=== PATIENT | female | born 2005 | race Caucasian/White ===

== ENCOUNTER → 2024-01-29 08:01 | Outpatient (BNVA) | payer MEDICAID, SELFPAY | PROVIDERS: Family Provider Nurse Practitioner Family; PCP Family Medicine; Visit Provider Nurse Practitioner Women's Health | DX: Z34.90 Encounter for supervision of normal pregnancy, unspecified, unspecified trimester | CPT/HCPCS: 80307; 81025; 84439; 84443; 84481; 85025; 86592; 86762; 86803; 86850; 86900; 87086; 87340; 87491; 87591; 87806 ==

== ENCOUNTER → 2024-02-09 08:00 | Outpatient (BNVA) | payer MEDICAID, SELFPAY | PROVIDERS: Family Provider Nurse Practitioner Family; PCP Family Medicine; Visit Provider Obstetrics & Gynecology | DX: Z34.02 Encounter for supervision of normal first pregnancy, second trimester (principal) | CPT/HCPCS: 81000; 82950 ==

== ENCOUNTER → 2024-02-16 11:15 | Outpatient (BNVA) | payer MEDICAID, SELFPAY | PROVIDERS: Family Provider Nurse Practitioner Family; PCP Family Medicine; Visit Provider Obstetrics & Gynecology | DX: O09.32 Supervision of pregnancy with insufficient antenatal care, second trimester (principal); Z3A.21 21 weeks gestation of pregnancy | CPT/HCPCS: 76805 ==

== ENCOUNTER → 2024-03-16 12:21 | Outpatient (BNVA) | payer BC, MEDICAID, SELFPAY | PROVIDERS: Family Provider Nurse Practitioner Family; PCP Family Medicine; Visit Provider Obstetrics & Gynecology | DX: Z36.2 Encounter for other antenatal screening follow-up (principal); Z3A.26 26 weeks gestation of pregnancy | CPT/HCPCS: 76816 ==

== ENCOUNTER → 2024-04-05 08:20 | Outpatient (BNVA) | payer BC, MEDICAID, SELFPAY | PROVIDERS: Family Provider Nurse Practitioner Family; PCP Family Medicine; Visit Provider Nurse Practitioner Women's Health | DX: Z34.02 Encounter for supervision of normal first pregnancy, second trimester (principal) | CPT/HCPCS: 82950; 84315; 85025 ==

== ENCOUNTER → 2024-04-11 08:14 | Outpatient (BNVA) | payer BC, MEDICAID, SELFPAY | PROVIDERS: Family Provider Nurse Practitioner Family; PCP Family Medicine; Visit Provider Nurse Practitioner Women's Health | DX: Z34.02 Encounter for supervision of normal first pregnancy, second trimester (principal) | CPT/HCPCS: 82951; 82952 ==

== ENCOUNTER → 2024-05-17 08:31 | Outpatient (BNVA) | payer BC, MEDICAID, SELFPAY | PROVIDERS: Family Provider Nurse Practitioner Family; PCP Family Medicine; Visit Provider Obstetrics & Gynecology | DX: Z34.02 Encounter for supervision of normal first pregnancy, second trimester (principal) | CPT/HCPCS: 82950; 84315 ==

== ENCOUNTER → 2024-05-19 08:31 | Outpatient (BNVA) | payer BC, MEDICAID, SELFPAY | PROVIDERS: Family Provider Nurse Practitioner Family; PCP Family Medicine; Visit Provider Obstetrics & Gynecology | DX: Z36.4 Encounter for antenatal screening for fetal growth retardation (principal); Z3A.36 36 weeks gestation of pregnancy | CPT/HCPCS: 76816 ==

== ENCOUNTER 2024-06-01 10:00 | Inpatient (IN) | payer BC, MEDICAID, SELFPAY ==
[2024-05-31] VITALS (52 sets, daily range): BP systolic 132–183; BP diastolic 74–137; PULSE 67–103; RESP 16–18; TEMP 36.8–37.2; BMI 41.2
[2024-05-31 10:15] LABS: Basophils % 0.2 %; Eosinophils # 0.1 10^3/uL (0.0-0.8); Eosinophils % 0.8 %; Hematocrit 34.9 % (36-47); Lymphocytes % 16.5 %; Mean Corpuscular HGB Conc 32.4 g/dL (30-55); Mean Corpuscular Hemoglobin 27.2 pg (27-33); Mean Corpuscular Volume 83.9 fl (85-98); Mean Platelet Volume 12.4 fL (7.4-10.4); Monocytes # 0.8 10^3/uL (0.2-0.9); Monocytes % 6.8 %; Neutrophils % 75.1 %; Nucleated Red Blood Cells % 0 %; Platelet Count 205 10^3/cmm (157-399); Red Blood Count 4.16 10^6/uL (3.85-5.65); Red Cell Distribution Width 14.9 % (12.1-15.1); White Blood Count 11.84 10^3/uL (3.29-11.43)
[2024-05-31 10:38] LABS: Alkaline Phosphatase 164 U/L (35-105); Anion Gap 16.2 (5-19); Blood Urea Nitrogen 13 mg/dL (6-20); Calcium 8.9 mg/dL (8.5-10.5); Carbon Dioxide 18 mmol/L (22-29); Chloride 107 mmol/L (98-107); Creatinine Clr Calc Pharmacy 211.5271; Globulin 3.3 g/dL (1.3-4.6); Glomerular Filtration Rate 126.2 mL/min (90-130); Glucose 115 mg/dL (65-115); Osmolality Calculated 285 mOsm/kg (285-295); Potassium 4.2 mmol/L (3.5-5.1); Sodium 137 mmol/L (136-145); Total Bilirubin 0.2 mg/dL (0.15-1.2); Total Protein 6.3 g/dL (6.6-8.7); Uric Acid 6.4 mg/dL (2.4-5.7)
[2024-05-31 10:40] LABS: Bilirubin Urine Negative (Negative); Blood Urine Negative (Negative); Glucose Urine UA Negative (Normal); Ketones Urine Negative (Negative); Leukocyte Esterase Urine 1+ (Negative); Nitrate Urine Negative (Negative); Protein Urine 1+ (Negative); Specific Gravity, Urine 1.011 (1.005-1.030); Urine Appearance Clear (CLEAR); Urine Color Yellow (Yellow); Urobilinogen Urine 0.2 mg/dL (Negative); pH Urine 6.5 (5-7)
[2024-05-31 10:43] LABS: Add Urine Microscopic? YES; Bacteria Urine Trace /hpf; RBC Urine 0-2 /hpf (0-2)
[2024-05-31 10:50] LABS: Alanine Aminotransferase < 5 U/L (0-33); Aspartate Amino Transferase 5 U/L (0-32)
[2024-05-31 11:02] LABS: UA Slide Review UA Slide Review Perf
[2024-05-31 11:03] LABS: Add Urine Culture? No; Urine Creatinine 61 mg/dL (28-217)
[2024-05-31 11:05] LABS: UPRO/UCREAT Ratio 0.54 mg/mg CR; Urine Protein Random 33 mg/dL
[2024-05-31] MEDS: dextrose 5%-lactated ringers 1,000 ML 75 ML IV (12:00)
[2024-05-31] MEDS: magnesium sulfate premix 4 GM/100 ML PREMIX IV (12:00)
[2024-05-31] MEDS: magnesium sulfate premix 20 GM/500 ML BAG IV ×2 (12:25→21:37)
[2024-05-31] MEDS: miSOPROStol 100 mcg tablet 25 MCG VAGINAL ×3 (12:28→22:43)
[2024-05-31] MEDS: ampicillin 2,000 MG in sodium chloride 0.9% (plus) 50 ML 100 MG IV (12:45)
[2024-05-31] MEDS: ampicillin 1,000 MG in sodium chloride 0.9% (plus) 50 ML 100 MG IV ×2 (16:31→20:53)
[2024-05-31 18:12] LABS: Magnesium Level (OB Only) 4.5 mg/dL (5.0-7.5)
[2024-05-31] MEDS: lanolin oint 7 gm 1 APPLIC TOPICAL (20:37)
[2024-06-01] VITALS (62 sets, daily range): BP systolic 119–160; BP diastolic 60–105; PULSE 65–112; RESP 16–18; TEMP 36.8–37.1
[2024-06-01] MEDS: ampicillin 1,000 MG in sodium chloride 0.9% (plus) 50 ML 100 MG IV ×4 (00:48→12:52)
[2024-06-01] MEDS: dextrose 5%-lactated ringers 1,000 ML 75 ML IV ×2 (02:42→17:43)
[2024-06-01 06:28] LABS: Magnesium Level (OB Only) 6.3 mg/dL (5.0-7.5)
[2024-06-01] MEDS: miSOPROStol 100 mcg tablet 25 MCG VAGINAL (07:11)
[2024-06-01] MEDS: magnesium sulfate premix 20 GM/500 ML BAG IV ×2 (07:42→17:40)
--- NOTE | 2024-06-01 09:20 | P.PN_ITS ---
Subjective 2 Subjective: Mrs. Waggoner 19-year-old female G1, P0 with an estimated stational age at 36 weeks 3 days with preeclampsia admitted for induction. Vitals/I&O/Wt Last Vital Signs Temp 98.3 F 06/01/24 05:30 Pulse 85 06/01/24 09:17 Resp 18 06/01/24 05:30 BP 137/84 06/01/24 09:17 O2 Del Method Room Air 05/31/24 12:03 05/31/24 06/01/24 06/01/24 22:59 06:59 14:59 Intake Total 560 / 710 1100 / 1810 500 / 500 Output Total 3150 / 3750 3065 / 6815 500 / 500 Balance -2590 / -3040 -1965 / -5005 0 / 0 Weight last 48 hrs Weight 126.552 kg Physical Exam 2 Narrative: GA: Alert and oriented ?3. Lungs: Clear to auscultation bilaterally. Heart: Regular rhythm and rate. Abdomen: Gravid, full the height equals dates, nontender. BUSINESS SYSTEMS ANALYST: SVE; dilation: 2 cm, effacement: 40%, station: -4, presentation: Cephalic, membranes: Intact membrane. Extremities: no edema, no cyanosis, no calves pain. heart tracing: Basal rate: 140's bpm, Variability: moderate, Accelerations: present, Decelerations: absent, Contraction: Irregular. Urinary Catheter Management: Leroy Latex Free: Cath Placed During This Visit: yes Reason for Continuing Indwelling Catheter: Accurate Measurement of Urinary Output in Critically Ill Patients Urinary Catheter Date of Insertion: 05/31/24 Urinary Catheter Time of Insertion: 12:00 Data 06/02/24 20:28 05/31/24 10:00 A&P Assessment and plan (1) Pre-eclampsia during in third trimester, antepartum: Mrs. Edilson Pablo-year-old female with an estimated stational age at 36 weeks 3 days admitted with preeclampsia for induction. Misoprostol for cervical ripening given to follow-up with oxytocin augmentation. scalp stimulation reassuring. Plan Continue monitoring Cervical ripening Induction Attestations 2 Medical Necessity Statement*: My professional opinion per admitting diagnosis Coding Level of Care Code Acute Code for Chg Fwd Diagnoses Pre-eclampsia during in third trimester, antepartum O14.93
[2024-06-01] MEDS: oxytocin 30 UNIT/500 ML BAG IV (12:45)
[2024-06-01 13:15] LABS: Magnesium Level (OB Only) 6.3 mg/dL (5.0-7.5)
[2024-06-01 18:19] LABS: Magnesium Level (OB Only) 6.1 mg/dL (5.0-7.5)
[2024-06-01] MEDS: ondansetron 2 mg/ML SDV 2 mL 4 MG IVP (19:36)
[2024-06-02] VITALS (41 sets, daily range): BP systolic 114–183; BP diastolic 56–99; PULSE 69–110; RESP 15; TEMP 36.2–36.7; O2SAT 97–100
[2024-06-02 00:49] LABS: Magnesium Level (OB Only) 6.3 mg/dL (5.0-7.5)
[2024-06-02] MEDS: magnesium sulfate premix 20 GM/500 ML BAG IV ×2 (03:49→14:57)
[2024-06-02] MEDS: lactated ringers 1,000 ML 999 ML IV (06:34)
--- NOTE | 2024-06-02 06:53 | P.ANESASSM_ITS ---
Pre-Anesthetic Assessment Height/Weight: Height 1.75 m Weight 126.552 kg Temp Pulse Resp BP O2 Del Method 97.2 F L 90 17 183/91 Room Air 06/02/24 02:22 06/02/24 06:46 06/01/24 16:30 06/02/24 06:46 05/31/24 12:03 Preop Diagnosis: Failure to progress, Pre-E Familial anesthetic complications: none Was Beta Tremaine taken within 24 hours: N/A Was Clonidine taken within 24 hours: N/A Last intake: Intake Last Liquid Date 06/02/24 Last Liquid Time 05:45 Last Solid Date 05/31/24 Last Solid Time 07:30 Social No alcohol and No tobacco Exam alert, oriented x 3, clear to auscultation bilaterally and regular rate & rhythm Airway Submandibular: within normal limits Cervical ROM: within normal limits Mallampati: Class II Dentition: full Pulmonary None reported CV/HEM Hypertension (183/91 pre-eclampsia mg gtt) partial third kidney removed at 1 years old. function otherwise normal. Hepatic None reported GI Gastroesophageal Reflux Disease Metabolic Morbid Obesity [facility] None reported Neuropsych None reported Anesthetic Plan ASA status: 3 Anesthesia: Eval. for regional block Medications/Allergies Home Medications Medication Instructions Recorded Confirmed Last Taken Type PNV 153-FA 400 mcg-om3 35 mg-dha 1 tab PO DAILY 05/03/24 05/31/24 Unknown History 25 mg-epa 5 mg-fish oil chew tablet ( Gummies) Allergies Allergy/AdvReac Type Severity Reaction Status Date / Time No Known Allergies Allergy Verified 05/31/24 20:41 Current Medications Generic Name Dose Route Start Last Admin Trade Name Kingsley PRN Reason Stop Dose Admin Magnesium Sulfate 20 gm in 500 mls @ 50 mls/hr 05/31/24 11:15 06/02/24 03:49 Magnesium Sulfate Premix IV 50 mls/hr .Q10H LUCILLE Administration Ampicillin Sodium 1,000 mg/ 50 mls @ 100 mls/hr 05/31/24 16:00 06/02/24 04:06 Sodium Chloride IV Not Given Q4H LUCILLE Protocol Dextrose/Lactated Ringer's 1,000 mls @ 125 mls/hr 06/01/24 01:00 06/01/24 17:43 Dextrose 5%-Lactated Ringers IV 75 mls/hr .Q8H LUCILLE Administration Oxytocin 30 unit in 500 mls @ 1 mls/hr 06/01/24 12:45 06/02/24 03:30 Pitocin IV 20 milliunit/min .Q24H LUCILLE 20 mls/hr Titration Protocol 1 MILLIUNIT/MIN Lactated Ringer's 1,000 mls @ 999 mls/hr 06/02/24 05:56 06/02/24 06:34 Lactated Ringers IV 06/02/24 06:56 999 mls/hr .Q1H1M ONE Administration Lanolin 1 applic 05/31/24 11:14 05/31/24 20:37 Lanolin Oint 7 Gm TOPICAL 1 applic PRN PRN Administration DRYNESS Ondansetron HCl 4 mg 05/31/24 11:14 06/01/24 19:36 Ondansetron 2 Mg/Ml Sdv 2 Ml IVP 4 mg Q4H PRN Administration NAUSEA AND VOMITING PFSH Anesthesia Family History Mother Heart disease Grandfather Diabetes Grandfather No problems noted. Grandmother Diabetes Denies family history of Colon cancer Ovarian cancer Prostate cancer Breast cancer Hypertension Uterine cancer Thyroid disease Stroke Social History Smoking and tobacco/nicotine status: never used tobacco/nicotine Female Reproductive History : 1 Data Anesthesia 05/31/24 10:00 05/31/24 10:00 Short CBC 05/31/24 Range/Units 10:00 WBC 11.84 H (3.29-11.43) 10^3/uL Hgb 11.30 (11.27-16.99) g/dL Hct 34.9 L (36-47) % MCV 83.9 L (85-98) fl Plt Count 205 (157-399) 10^3/cmm Neut % (Auto) 75.1 % Neut # (Auto) 8.90 H (1.8-7.7) 10^3/uL BMP 05/31/24 10:00 Sodium 137 Potassium 4.2 Chloride 107 Carbon Dioxide 18 L BUN 13 Creatinine 0.6 Glucose 115 Calcium 8.9 Liver Function 05/31/24 Range/Units 10:00 Total Bilirubin 0.2 (0.15-1.2) mg/dL AST 5 (0-32) U/L ALT < 5 (0-33) U/L Alkaline Phosphatase 164 H (35-105) U/L Albumin 3.0 L (3.5-5.2) g/dL Urine 05/31/24 05/31/24 Range/Units 09:54 10:00 Urine Color Cancelled Yellow Urine Appearance Cancelled Clear Urine pH Cancelled 6.5 Ur Specific [place] Cancelled 1.011 Urine Protein Cancelled 1+ A Urine Glucose (UA) Cancelled Negative Urine Ketones Cancelled Negative Urine Nitrate Cancelled Negative Urine Bilirubin Cancelled Negative Ur Leukocyte Esterase Cancelled 1+ A Urine RBC Cancelled 0-2 Urine WBC Cancelled 11-20 H Ur Renal Epithelial Cell Cancelled Blood Bank 05/31/24 10:00 Blood Type B Positive Rho(D) Type Rh positive Antibody Screen Negative Cardiac Studies: 2 No Data to Display
[2024-06-02] MEDS: metoclopramide 5 mg/mL SDV 2 mL 10 MG IV (06:55)
[2024-06-02] MEDS: citric acid-sodium citrate 30 mL UDC PO (06:55)
[2024-06-02] MEDS: famotidine 20 mg/2 mL INJ IVP (06:57)
[2024-06-02] MEDS: BUPIVACAINE LIPOSOME/PF 266 MG, BUPivacaine 0.25% 30 ML in sodium chloride 0.9% 50 ML 30 MG INFILTRATI (07:33)
--- NOTE | 2024-06-02 08:42 | PM.OP ---
Operative Report Date of procedure: June 02, 2024 Pre-op diagnosis: at 36 weeks Preeclampsia Failure to progress Post-op diagnosis: same Procedure done: Primary low-transverse delivery Surgeon: Austin No MD Estimated blood loss (mL): 400 IV fluids (mL): 1,200 Urine output (mL): 50 Complications: None Procedure: After assuring informed consent, the patient was taken to the operating room and anesthesia was initiated. She was placed in the dorsal supine position with a left lateral tilt. The abdomen was prepped and draped in the usual sterile manner. A time-out procedure was performed. Preop antibiotics was administered. A Pfannenstiel skin incision was made with the scalpel and carried through to the underlying layer of fascia with the Bovie. The fascia was nicked in the midline and the incision extended laterally with the Kong scissors. The superior aspect of the fascial incision was then grasped with Darlin clamps and elevated and the underlying rectus muscle dissected off bluntly. Attention was then turned to the inferior aspect of the incision which, in similar fashion, was grasped and tented up with Darlin clamps and the rectus muscle dissected bluntly. The rectus muscles were then in the midline and the peritoneum identified, tented up and entered sharply with Metzenbaum scissors. The peritoneal incision was then extended superiorly and inferiorly with good visualization of the bladder. The Dennis O retractor was then inserted and the vesicouterine peritoneum identified, grasped with pickups and entered sharply with Metzenbaum scissors. This incision was then extended laterally and the bladder flap created digitally. The uterus incised in a low transverse fashion with the scalpel. The uterine incision was then extended with the bandage scissors. The was then delivered in the cephalic presentation atraumatically vacuum assisted. The nose and the mouth were suctioned with bulb and the cord clamped and cut. The cord was normal and had three vessels. Amniotic fluid was clear. The placenta was then removed manually and the uterus exteriorized and cleared of all clots and debris. The uterine incision was repaired with 0 Vicryl in a running-locked fashion. A second layer of the same suture was used to obtain excellent hemostasis. The gutters were cleared of all clots. The uterus was then returned to the abdomen. The rectus muscles were approximated with 3-0 chromic gut. The fascia was reapproximated with 0 Vicryl in an interrupted running fashion. Subcutaneous adipose tissue was reapproximated with 2-0 Vicryl running fashion. Then the subcutaneous tissue was infiltrated with Exparel for pain management. The skin was closed with Insorb?s subcuticular absorbable negro. The patient tolerated the procedure well. The sponge, lap and needle counts were correct times three.
[2024-06-02] MEDS: diphenhydrAMINE 50 mg/mL SDV 1mL 25 MG IVP (11:07)
[2024-06-02] MEDS: dextrose 5%-lactated ringers 1,000 ML 75 ML IV (11:10)
[2024-06-02] MEDS: ketorolac 30 mg/mL INJ IVP ×2 (15:32→21:44)
[2024-06-02] MEDS: lanolin oint 7 gm 1 APPLIC TOPICAL (15:34)
[2024-06-02 21:33] LABS: Hematocrit 29.4 % (36-47); Mean Corpuscular HGB Conc 32.7 g/dL (30-55); Mean Corpuscular Hemoglobin 26.7 pg (27-33); Mean Corpuscular Volume 81.9 fl (85-98); Mean Platelet Volume 13.3 fL (7.4-10.4); Platelet Count 217 10^3/cmm (157-399); Red Blood Count 3.59 10^6/uL (3.85-5.65); Red Cell Distribution Width 14.8 % (12.1-15.1); White Blood Count 11.74 10^3/uL (3.29-11.43)
[2024-06-02] MEDS: docusate sodium 100 mg Capsule PO (21:45)
[2024-06-02 21:58] LABS: Magnesium Level (OB Only) 6.4 mg/dL (5.0-7.5)
[2024-06-03] VITALS (8 sets, daily range): BP systolic 130–159; BP diastolic 72–99; PULSE 75–98; RESP 16; TEMP 36.9
[2024-06-03] MEDS: dextrose 5%-lactated ringers 1,000 ML 75 ML IV (00:39)
[2024-06-03] MEDS: magnesium sulfate premix 20 GM/500 ML BAG IV (00:40)
[2024-06-03] MEDS: ketorolac 30 mg/mL INJ IVP (03:16)
[2024-06-03] MEDS: PRENATAL VIT NO.130/IRON/FOLIC 1 EACH TABLET PO (09:16)
[2024-06-03] MEDS: docusate sodium 100 mg Capsule PO ×2 (09:16→20:45)
--- NOTE | 2024-06-03 12:50 | P.PN_ITS ---
Subjective 2 Subjective: Mrs. Waggoner 19-year-old female G1, P1 status post primary low-transverse delivery postoperative day 1. Referred pain under control. Vitals/I&O/Wt Last Vital Signs Temp 98.4 F 06/04/24 04:07 Pulse 91 06/04/24 04:07 Resp 14 06/04/24 04:07 BP 132/88 06/04/24 04:07 Pulse Ox 96 06/04/24 04:07 O2 Del Method Room Air 06/04/24 04:07 06/03/24 06/04/24 06/04/24 22:59 06:59 14:59 Output Total 1000 / 2210 Balance -1000 / -1839.167 Physical Exam 2 Narrative: GA; alert and oriented x 3 HEENT: normal Breasts: engorged Nipples - skin intact Lungs; clear to auscultation Heart: regular rhythm, no murmurs. Abd: Appropriately tender. BS+. Uterine fundus below umbilicus. No Fundal Tenderness. Minimal tenderness, incision clean and dry, no redness, pain or edema Perineum: normal lochia. Extremities: no edema, no cyanosis, no tenderness. Urinary Catheter Management: Leroy Latex Free: Cath Placed During This Visit: yes, but has since been removed by the nurse Reason for Continuing Indwelling Catheter: Decision to DC Catheter Urinary Catheter Date of Insertion: 05/31/24 Urinary Catheter Time of Insertion: 12:00 Date Urinary Catheter Removed: 06/03/24 Time Urinary Catheter Discontinued: 09:00 Data 06/02/24 20:28 05/31/24 10:00 A&P Assessment and plan (1) delivery delivered: Mrs. Edilson Pablo-year-old female G1, P1 status post primary low-transverse delivery due to failure to progress. She is afebrile hemodynamically stable postoperative day 1. Tolerating diet well. Ambulating without difficulty. (2) Pre-eclampsia during in third trimester, antepartum: Plan Continue postop observation Attestations 2 Medical Necessity Statement*: In my professional opinion per admitting diagnosis Coding Level of Care Code Acute Code for Chg Fwd Diagnoses delivery delivered O82 Pre-eclampsia during in third trimester, antepartum O14.93
[2024-06-03] MEDS: HYDROcodone-acetaminophen 5-325 mg Tablet PO (13:22)
[2024-06-03] MEDS: ibuprofen 800 mg tablet PO ×2 (16:09→20:45)
[2024-06-04 04:07] VITALS: BP 132/88; PULSE 91; RESP 14; TEMP 36.9; O2SAT 96
[2024-06-04] MEDS: HYDROcodone-acetaminophen 5-325 mg Tablet PO (05:41)
--- NOTE | 2024-06-04 08:54 | PM.OBGYDC ---
Discharge Providers HEAD HOUSEKEEPER Date of Admission: 05/31/24 11: Date of Discharge: 06/04/24 Attending Provider at Admission: Austin No MD Attending Provider at Discharge: Austin No MD Primary HEAD HOUSEKEEPER: Dr. Rivero Primary Care Provider: Toni Peralta DO Diagnoses at Discharge Discharge Diagnosis (1) delivery delivered: Status: Acute (2) Pre-eclampsia during in third trimester, antepartum: Status: Acute Reason for Visit Reason for Visit: NST Elevated BP Hospital Course Hospital Course Mrs. Waggoner 19-year-old female with an estimated stational age at 36 weeks, complicated by preeclampsia. Induction was started she only progress to 2 cm dilation after 48 hours of induction. Primary low-transverse delivery was performed for failure to progress. delivery was performed without complication. She is afebrile hemodynamically stable postoperative day 2. Tolerating diet well. Ambulating without difficulty. She was counseled regarding pelvic rest for 6 weeks (no sex, no tampons, no vaginal douches). Return to the emergency room if any fever, increased bleeding or pain. Information Peripartum Data: Delivery Method: Physical Exam Narrative: GA; alert and oriented x 3 HEENT: normal Breasts: engorged Nipples - skin intact Lungs; clear to auscultation Heart: regular rhythm, no murmurs. Abd: Appropriately tender. BS+. Uterine fundus below umbilicus. No Fundal Tenderness. Minimal tenderness, incision clean and dry, no redness, pain or edema Perineum: normal lochia. Extremities: no edema, no cyanosis, no tenderness. Urinary Catheter Management: Leroy Latex Free: Cath Placed During This Visit: yes, but has since been removed by the nurse Reason for Continuing Indwelling Catheter: Decision to DC Catheter Urinary Catheter Date of Insertion: 05/31/24 Urinary Catheter Time of Insertion: 12:00 Date Urinary Catheter Removed: 06/03/24 Time Urinary Catheter Discontinued: 09:00 History History History 1 Term 0 Miscarriages/Ectopic Living Children Discharge Data Studies Completed and Pending Laboratory Results WBC 11.74 10^3/uL (3.29-11.43) H 06/02/24 20:28 RBC 3.59 10^6/uL (3.85-5.65) L 06/02/24 20:28 Hgb 9.60 g/dL (11.27-16.99) L 06/02/24 20: Hct 29.4 % (36-47) L 06/02/24 20: MCV 81.9 fl (85-98) L 06/02/24 20: MCH 26.7 pg (27-33) L 06/02/24 20: MCHC 32.7 g/dL (30-55) 06/02/24 20: RDW 14.8 % (12.1-15.1) 06/02/24 20: Plt Count 217 10^3/cmm (157-399) 06/02/24 20: MPV 13.3 fL (7.4-10.4) H 06/02/24 20: Neut % (Auto) 75.1 % 05/31/24 10:00 Lymph % (Auto) 16.5 % 05/31/24 10:00 [place] % (Auto) 6.8 % 05/31/24 10:00 Eos % (Auto) 0.8 % 05/31/24 10:00 Baso % (Auto) 0.2 % 05/31/24 10:00 Neut # (Auto) 8.90 10^3/uL (1.8-7.7) H 05/31/24 10:00 Lymph # (Auto) 2.0 10^3/uL (0.8-4.8) 05/31/24 10:00 [place] # (Auto) 0.8 10^3/uL (0.2-0.9) 05/31/24 10:00 Eos # (Auto) 0.1 10^3/uL (0.0-0.8) 05/31/24 10:00 Baso # (Auto) 0.0 10^3/uL (0.0-0.1) 05/31/24 10:00 Nucleated RBC % (auto) 0 % 05/31/24 10:00 Nucleated RBCs # 0.0 /100WBC 05/31/24 10:00 Sodium 137 mmol/L (136-145) 05/31/24 10:00 Potassium 4.2 mmol/L (3.5-5.1) 05/31/24 10:00 Chloride 107 mmol/L (98-107) 05/31/24 10:00 Carbon Dioxide 18 mmol/L (22-29) L 05/31/24 10:00 Anion Gap 16.2 (5-19) 05/31/24 10:00 BUN 13 mg/dL (6-20) 05/31/24 10:00 Creatinine 0.6 mg/dL (0.5-0.9) 05/31/24 10:00 GFR Calculation 126.2 mL/min (90-130) 05/31/24 10:00 Glucose 115 mg/dL (65-115) 05/31/24 10:00 Calculated Osmolality 285 mOsm/kg (285-295) 05/31/24 10:00 Uric Acid 6.4 mg/dL (2.4-5.7) H 05/31/24 10:00 Calcium 8.9 mg/dL (8.5-10.5) 05/31/24 10:00 Magnesium 6.4 mg/dL (5.0-7.5) 06/02/24 20:28 Total Bilirubin 0.2 mg/dL (0.15-1.2) 05/31/24 10:00 AST 5 U/L (0-32) 05/31/24 10:00 ALT < 5 U/L (0-33) 05/31/24 10:00 Alkaline Phosphatase 164 U/L (35-105) H 05/31/24 10:00 Total Protein 6.3 g/dL (6.6-8.7) L 05/31/24 10:00 Albumin 3.0 g/dL (3.5-5.2) L 05/31/24 10:00 Globulin 3.3 g/dL (1.3-4.6) 05/31/24 10:00 Urine Color Yellow (Yellow) 05/31/24 10:00 Urine Appearance Clear (CLEAR) 05/31/24 10:00 Urine pH 6.5 (5-7) 05/31/24 10:00 Ur Specific [place] 1.011 (1.005-1.030) 05/31/24 10:00 Urine Protein 1+ (Negative) A 05/31/24 10:00 Urine Glucose (UA) Negative (Normal) 05/31/24 10:00 Urine Ketones Negative (Negative) 05/31/24 10:00 Urine Blood Negative (Negative) 05/31/24 10:00 Urine Nitrate Negative (Negative) 05/31/24 10:00 Urine Bilirubin Negative (Negative) 05/31/24 10:00 Prot Sulfosalicylic Acd Cancelled 05/31/24 09:54 Urine Urobilinogen 0.2 mg/dL (Negative) 05/31/24 10:00 Ur Leukocyte Esterase 1+ (Negative) A 05/31/24 10:00 Urine RBC 0-2 /hpf (0-2) 05/31/24 10:00 Urine WBC 11-20 /hpf (0-5) H 05/31/24 10:00 Ur Squamous Epith Cells 6-10 /hpf (0-5) 05/31/24 10:00 Ur Transition Epith Cell Cancelled 05/31/24 09:54 Ur Renal Epithelial Cell Cancelled 05/31/24 09:54 Calcium Oxalate Crystal Cancelled 05/31/24 09:54 Uric Acid Crystals Cancelled 05/31/24 09:54 Triple Phos Crystals Cancelled 05/31/24 09:54 Other Crystals Cancelled 05/31/24 09:54 Amorphous Sediment Not Reportable 05/31/24 10:00 Urine Bacteria Trace /hpf (NONE) 05/31/24 10:00 Hyaline Casts 0.40 /lpf 05/31/24 10:00 Fine Granular Casts Cancelled 05/31/24 09:54 Coarse Granular Casts Cancelled 05/31/24 09:54 RBC Casts Cancelled 05/31/24 09:54 Other Casts Cancelled 05/31/24 09:54 Urine Mucus Cancelled 05/31/24 09:54 Urine Trichomonas Cancelled 05/31/24 09:54 Urine Yeast Cancelled 05/31/24 09:54 Urine Sperm Cancelled 05/31/24 09:54 Ur Oval Fat Bodies Cancelled 05/31/24 09:54 U Random Total Protein 33 mg/dL 05/31/24 10:00 Urine Creatinine 61 mg/dL (28-217) 05/31/24 10:00 Protein/Creatinin Ratio 0.54 mg/mg CR 05/31/24 10:00 Blood Type B Positive 05/31/24 10:00 Rho(D) Type Rh positive 05/31/24 10:00 Antibody Screen Negative 05/31/24 10:00 Vitals Last Vital Signs Temp 98.4 F 06/04/24 04:07 Pulse 91 06/04/24 04:07 Resp 14 06/04/24 04:07 BP 132/88 06/04/24 04:07 Pulse Ox 96 06/04/24 04:07 O2 Del Method Room Air 06/04/24 04:07 Results Labs OB ([facility]): Obstetrics US 05/19/24 Blood Type B Positive 05/31/24 Antibody Screen Negative 05/31/24 Hct 29.4 % (36-47) L 06/02/24 Hgb 9.60 g/dL (11.27-16.99) L 06/02/24 Rho(D) Type Rh positive 05/31/24 Plt Count 217 10^3/cmm (157-399) 06/02/24 Hep Bs Antigen Non-reactive (Nonreactive) 01/29/24 Hepatitis C Antibody Non-reactive (Nonreactive) 01/29/24 Rubella IgG Antibody 36.6 IU/mL (0.0-10.0) H 01/29/24 RPR Nonreactive (Nonreactive) 01/29/24 HIV 1&2 Ab & HIV 1 Ag Non-reactive (Non-Reactiv) 01/29/24 TSH 1.64 uIU/mL (0.27-4.20) 01/29/24 Free T4 0.82 ng/dL (0.82-1.77) 01/29/24 C.trachomatis RNA (TMA) Not detected (NOT DETECTED) 01/29/24 N.gonorrhoeae RNA (TMA) Not detected (NOT DETECTED) 01/29/24 T. vaginalis Amp RNA Not detected (NOT DETECTED) 01/29/24 Chlamydia/GC Comment See note 01/29/24 Cystic Fibrosis Screen Negative 01/29/24 Glucose 1 Hr 50 gm 97 mg/dL (85-140) 05/17/24 Gest Glucose Tolerance mg/dL 04/11/24 Uric Acid 6.4 mg/dL (2.4-5.7) H 05/31/24 HCG, Qual Positive (Negative) H 01/29/24 Urine Opiates Screen Negative ng/mL (Negative) 01/29/24 Ur Barbiturates Screen Negative ng/mL (Negative) 01/29/24 Ur Phencyclidine Scrn Negative ng/mL (Negative) 01/29/24 Ur Amphetamines Screen Negative ng/mL (Negative) 01/29/24 U Benzodiazepines Scrn Negative ng/mL (Negative) 01/29/24 Urine Cocaine Screen Negative ng/mL (Negative) 01/29/24 U Marijuana (THC) Screen Negative ng/mL (Negative) 01/29/24 Micro Urine Specimen 01/29/24 Discharge Plan Discharge Patient Disposition: Home Condition: Stable Prescriptions: New ibuprofen 800 mg tablet 800 mg PO TID PRN (Reason: pain) Qty: 60 0RF docusate sodium [Colace] 100 mg capsule 100 mg PO BID Qty: 60 0RF acetaminophen 325 mg capsule 325 mg PO Q4H PRN (Reason: fever or pain) Qty: 60 0RF hydrocodone-acetaminophen 5-325 mg tablet 1 tab PO Q4H PRN (Reason: pain) Qty: 30 0RF ferrous sulfate [Iron (ferrous sulfate)] 325 mg (65 mg iron) tablet 325 mg PO BID Qty: 60 0RF Continued Gummies 400 mcg-35 mg- 25 mg-5 mg tablet,chewable 1 tab PO DAILY Discharge Orders: Discharge Order (Routine); Ordered 06/04/24 Ordered By: Austin No Referrals: Austin No MD [Physician] - 06/14/24 9:45 am ( You have a 2 [address] follow up with Dr No on 06/14/24 at 9:45am You have a 6 week follow up with Dr No on 07/07/24 at 10:45am ) Discharge Diet: Usual diet Discharge Activity: Limit activity as instructed Patient Instructions: Depression (DC), Bleeding (DC), Preeclampsia and Eclampsia After Delivery (GEN), Hemorrhage (DC), OB [facility], OB Discharge Report, OB Anesthesia Instructions, OB Food/Drug Interaction Guide, Opioid Safety, OB Home Care, OB Proud Parent Packet Activity Restrictions/Additional Instructions: 1. Please call [facility] on next working day to make your post-operative appointment in 2 weeks. 2. Please stay home until you come back to the clinic on first post-hospatilization check up. 3. Please follow instructions on your medications CAREFULLY. 4. If you have abdominal incision, do not cover it unless dressing is necessary because of drainage. OK to shower, but avoid bath. Leave steri-strips until they fall off. If they are still on one week after surgery, you may remove them. 5. If you had vaginal surgery or vaginal repair, Dr. No may instruct you to take SITZ bath. 6. Yellow, blood tinged odorous vaginal discharge is usually normal after hysterectomy or vaginal surgeries. 7. No SEXUAL INTERCOURSE, tampons, or douches until you are completely released from the post-operative care. 8. Avoid constipation by eating right and maybe using some Metamucil or Milk of Magnesia. 9. All prescription refills are given during the working hours. Please do no wait till it runs out. Call the clinic at [phone] before your medication runs out. The clinic will get in touch with your doctor to prescribe medications if necessary. 10. Please remain within 40 mile radius from our hospital because emergencies do happen now and then during the post-operative period. 11. If you have stairs at home, take one step at a time slowly and minimize the number of trips. It helps to stay in one floor for the next few days. No lifting except what you can lift by one hand until you are released from the post-operative care. 12. Driving is discouraged until you are well healed. It may be 3-4 weeks before you feel strong enough to drive. You should be able to turn and look through the rear window without pain and you should be able to push the brake pedal very hard without pain before you drive. No fast rules, but SAFETY should be your primary concern. DO NOT drive if you are on sedating medications such as narcotics. 13. Call the clinic (during working hours) to make urgent appointment or go to the Emergency room, if any of the following occurs: i. Vaginal bleeding becomes heavy, more than a period. ii. Incision becomes red and sore, or drains pus. iii. Your TEMPERATURE is over 100.4F or you have chill. iv. IV site becomes red and swollen (a little ``knot?? is usually OK) v. Persistent nausea and vomiting vi. Persistent constipation or diarrhea vii. Rash or allergic reaction to medications. Discharge Attestations HEAD HOUSEKEEPER Time Spent in Discharge Care*: greater than 30 min Coding Level of Care Code Acute Code for Chg Fwd Diagnoses delivery delivered O82 Pre-eclampsia during in third trimester, antepartum O14.93
[2024-06-04 08:58] VITALS: BP 127/82; PULSE 83
[2024-06-04 09:00] VITALS: BP 147/82; PULSE 96; RESP 16; TEMP 35.9; O2SAT 98
[2024-06-04] MEDS: ibuprofen 800 mg tablet PO (09:01)
[2024-06-04] MEDS: PRENATAL VIT NO.130/IRON/FOLIC 1 EACH TABLET PO (09:02)
[2024-06-04] MEDS: docusate sodium 100 mg Capsule PO (09:02)
[2024-06-04 10:14] VITALS: BP 127/82; PULSE 83; RESP 16; TEMP 36.6; O2SAT 98
== END 2024-06-04 10:35 | disposition home or self-care (01) | DRG 788 ==
PROVIDERS: Admitting Provider Obstetrics & Gynecology; Family Provider Nurse Practitioner Family; PCP Family Medicine; Visit Provider Obstetrics & Gynecology
PROC: (CPT 59514; principal; 2024-06-02 07:00)
DX: O14.94 Unspecified pre-eclampsia, complicating childbirth (principal); O61.0 Failed medical induction of labor; O62.0 Primary inadequate contractions; Z3A.38 38 weeks gestation of pregnancy; Z37.0 Single live birth
CPT/HCPCS: 36415; 51702; 59025; 59409; 80053; 81001; 82570; 83735; 84156; 84315; 84550; 85025; 85027; 86850; 86900; 87081; 96376; 99211; C9290; J0290; J1200; J1885; J2274; J2405; J2590; J2765; J3010; J3475; J3490; J7030; J7120; J7121

== ENCOUNTER → 2024-08-04 15:51 | Outpatient (BNVA) | payer BC, MEDICAID, SELFPAY | PROVIDERS: Family Provider Nurse Practitioner Family; PCP Family Medicine; Visit Provider Obstetrics & Gynecology | DX: Z01.419 Encounter for gynecological examination (general) (routine) without abnormal findings (principal) | CPT/HCPCS: 87624 ==

== ENCOUNTER 2024-10-04 06:22 | Emergency (ER) | payer MEDICAID, SELFPAY ==
--- NOTE | 2024-10-04 06:33 | ED_ITS ---
HPI - Ear Problem 2 General: Chief complaint: Neck Pain/Injury Stated complaint: left ear pain Time Seen by Provider: 10/04/24 06:29 History of Present Illness: 19-year-old female presents emergency ro om the left ear pain and left-sided neck pain. She refers pain to the sternocleidomastoid muscle on the left side of her neck. She states she was fine yesterday when she woke up but this morning is severe pain is worse when she moves it is triggers specifically to the lateral portion of the left neck and it patient indicates directly overlying the sternocleidomastoid muscle. On arrival she initially has a low-grade fever. She is also complaining of some ear pain no other deficits no drainage no shortness of breath or cough. Associated symptoms: Reports ear or mastoid pain and neck pain; Denies fever(s) Related Data Home Medications ?Medication ?Instructions ?Recorded ?Confirmed PNV 153-FA 400 mcg-om3 35 mg-dha 1 tab PO DAILY 10/04/24 25 mg-epa 5 mg-fish oil chew tablet ( Gummies) Previous Rx's ?Medication ?Instructions ?Recorded docusate sodium 100 mg capsule 100 mg PO BID Constipat ion #60 caps 06/04/24 (Colace) ferrous sulfate 325 mg (65 mg 325 mg PO BID Anemia #60 tabs 06/04/24 iron) tablet (Iron (ferrous sulfate)) diclofenac sodium 75 mg 75 mg PO Q12H PRN pain #20 t abs 10/04/24 tablet,delayed release methylprednisolone 4 mg tablets in See Rx Instructions PO .COMPLEX 10/04/24 a dose pack (Medrol (Yahir)) #21 ea tizanidine 4 mg tablet 4 mg PO Q6H PRN muscle spast icity 10/04/24 #20 tabs Allergies Allergy/AdvReac Type Severity Reaction Status Date / Time No Known Allergies Allergy Verified 10/04/24 06:41 Review of Systems 2 Const: Denies: fever(s) or chills ENMT: Reports: ear or mastoid pain Card: Denies: chest pain Resp: Denies: dyspnea GI: Denies: abdominal pain : Denies: dysuria, urinary frequency or urinary urgency Musc: Reports: neck pain; Denies: back pain Skin/Breast: Denies: rash PFSH ED 2 PFSH: Family History Mother Heart disease Grandfather Diabetes Grandfather No problems noted. Grandmother Diabetes Denies family history of Colon cancer Ovarian cancer Prostate cancer Breast cancer Hypertension Uterine cancer Thyroid disease Stroke Social History Smoking and tobacco/nicotine status: never used tobacco/nicotine Physical Exam 2 Const: COMMON NORMALS: no acute distress GENERAL APPEARANCE: cooperative and comfortable ORIENTATION/CONSCIOUSNESS: Yes awake, Yes oriented to person, Yes oriented to place and Yes oriented to time HENMT: COMMON NORMALS: normocephalic, atraumatic, hearing grossly normal bilaterally, external ears normal, EAC's normal, TM's normal bilaterally and Normal nasal mucous membranes and turbinates present HEAD & SCALP: n ormocephalic and atraumatic NOSE: Normal nasal mucous membranes and turbinates present EXTERNAL EAR: Yes external ears normal EXTERNAL AUDITORY CANAL: EAC's normal TYMPANIC MEMBRANE: TM's normal bilaterally M OUTH: Normal oral and palatal mucosa present, lip normal and tongue normal T EETH & GINGIVA: no abnormal tooth and associated gingiva THROAT: posterior oropharynx normal and tonsils normal (Mild chronic hypertrophy but no exudate no erythema) Neck/C-Spine: COMMON NORMALS: no lymphadenopathy, supple and no JVD OTHER: Pain with range of motion of the neck particularly with flexion and extension no palpable lymphadenopathy no nuchal rigidity. No radicular arm symptoms Lymph: LYMPHATIC: no lymphadenopathy noted and no lymphedema noted Resp: COMMON NORMALS: normal respiratory effort, No retractions, No use of accessory muscles and clear to auscultation bilaterally AUSCULTATION: clear to auscultation bilaterally Cardio: COMMON NORMALS: no JVD, regular rate, regular rhythm and No murmurs present (Cardio) RATE: regular rate RHYTHM: regular rhythm Neuro: SENSORIUM/ORIENTATION: Yes oriented to person, Yes oriented to place and Yes oriented to time Skin: COMMON NORMALS: no rashes or lesions noted GENERAL SKIN EXAM: no rashes or lesions noted Course 2 Vital Signs: Vital signs: Vital Signs Temperature 98.3 F 10/04/24 08:02 Pulse Rate 87 10/04/24 09:12 Respiratory Rate 20 H 10/04/24 08:59 Blood Pressure 139/84 10/04/24 09:12 Pulse Oximetry 95 10/04/24 09:12 Oxygen Delivery Me thod Room Air 10/04/24 06:37 MDM - Ear Medical Decision Making TMs external auditory canals oropharynx clear all normal. She has reproducible pain with range of motion. She has no radicular neck symptoms. She has no meningeal like symptoms. We monitored her for a time fever resolved she does have a very light elevation of her white count and a small left shift but not very impressive at this time her sed rate is only 29. With anti-inflammatories and steroids that she has significant improvement of the neck pain. Unable to work her through a full range of motion in her neck at this time. Kernig's and (are negative. I do not believe she has a significant cervical cord impingement. There is no evidence of upper extremity radiculopathy. The rest of her exam was unremarkable. Will discharge patient home with steroid taper muscle relaxers as has worsening symptoms return to the emergency room. Medical Records I reviewed the patient's medical records. Lab Data I reviewed the patient's lab results. 10/04/24 07:12 10/04/24 07:12 Laboratory Results WBC 12.48 10^3/uL (3.29-11.43) H 10/04/24 07:12 RBC 4.84 10^6/uL (3.85-5.65) 10/04/24 07:12 Hgb 12.50 g/dL (11.27-16.99) 10/04/24 07:12 Hct 39.4 % (36-47) 10/04/24 07:12 MCV 81.4 fl (85-98) L 10/04/24 07:12 MCH 25.8 pg (27-33) L 10/04/24 07:12 MCHC 31.7 g/dL (30-55) 10/04/24 07:12 RDW 14.3 % (12.1-15.1) 10/04/24 07:12 Plt Count 312 10^3/cmm (157-399) 10/04/24 07:12 MPV 11.3 fL (7.4-10.4) H 10/04/24 07:12 Neut % (Auto) 67.0 % 10/04/24 07:12 Lymph % (Auto) 23.2 % 10/04/24 07:12 [place] % (Auto) 8.4 % 10/04/24 07:12 Eos % (Auto) 0.7 % 10/04/24 07:12 Baso % (Auto) 0.3 % 10/04/24 07:12 Neut # (Auto) 8.36 10^3/uL (1.8-7.7) H 10/04/24 07:12 Lymph # (Auto) 2.9 10^3/uL (0.8-4.8) 10/04/24 07:12 [place] # (Auto) 1.1 10^3/uL (0.2-0.9) H 10/04/24 07:12 Eos # (Auto) 0.1 10^3/uL (0.0-0.8) 10/04/24 07:12 Baso # (Auto) 0.0 10^3/uL (0.0-0.1) 10/04/24 07:12 Nucleated RBC % (auto) 0 % 10/04/24 07:12 Nucleated RBCs # 0.0 /100WBC 10/04/24 07:12 ESR 29 mm/hr (0-15) H 10/04/24 07:12 Sodium 139 mmol/L (136-145) 10/04/24 07:12 Potassium 3.9 mmol/L (3.5-5.1) 10/04/24 07:12 Chloride 101 mmol/L (98-107) 10/04/24 07:12 Carbon Dioxide 24 mmol/L (22-29) 10/04/24 07:12 Anion Gap 17.9 (5-19) 10/04/24 07:12 BUN 12 mg/dL (6-20) 10/04/24 07:12 Creatinine 0.9 mg/dL (0.5-0.9) 10/04/24 07:12 GFR Calculation 79.0 mL/min (90-130) L 10/04/24 07:12 Glucose 111 mg/dL (65-115) 10/04/24 07:12 Calculated Osmolality 288 mOsm/kg (285-295) 10/04/24 07:12 Calcium 9.5 mg/dL (8.5-10.5) 10/04/24 07:12 Total Bilirubin 0.2 mg/dL (0.15-1.2) 10/04/24 07:12 AST 18 U/L (0-32) 10/04/24 07:12 ALT 26 U/L (0-33) 10/04/24 07:12 Alkaline Phosphatase 135 U/L (35-105) H 10/04/24 07:12 Total Protein 7.7 g/dL (6.6-8.7) 10/04/24 07:12 Albumin 4.0 g/dL (3.5-5.2) 10/04/24 07:12 Globulin 3.7 g/dL (1.3-4.6) 10/04/24 07:12 Influenza A (PCR) Negative (Negative) 10/04/24 07:42 Influenza Type B (PCR) Negative (Negative) 10/04/24 07:42 RSV (PCR) Negative (Negative) 10/04/24 07:42 SARS-CoV-2 (PCR) Negative (Negative) 10/04/24 07:42 All radiology interpretation(s) finalized by discharge Discharge Plan Discharge Patient Disposition: Home Clinical Impression: Strain of neck muscle Condition: Stable Prescriptions: New tizanidine 4 mg tablet 4 mg PO Q6H PRN (Reason: muscle spasticity) Qty: 20 0RF Rx Instructions: do not exceed 3 doses per 24 hrs diclofenac sodium 75 mg tablet,delayed release (DR/EC) 75 mg PO Q12H PRN (Reason: pain) Qty: 20 0RF methylprednisolone [Medrol (Yahir)] 4 mg tablets,dose pack See Rx Instructions .ROUTE .COMPLEX Qty: 21 0RF Rx Instructions: orally per package directions No Action Gummies 400 mcg-35 mg- 25 mg-5 mg tablet,chewable 1 tab PO DAILY docusate sodium [Colace] 100 mg capsule 100 mg PO BID Qty: 60 0RF ferrous sulfate [Iron (ferrous sulfate)] 325 mg (65 mg iron) tablet 325 mg PO BID Qty: 60 0RF Discharge Orders: Discharge ED (Routine); Ordered 10/04/24 Ordered By: Sami Gatica Referrals: Toni Peralta, [Primary Care Provider] - Discharge Diet: Usual diet Discharge Activity: Increase activity as tolerated Patient Instructions: Cervical Strain (ED), Acute Neck Pain (ED), Opioid Safety, Pain Management Activity Restrictions/Additional Instructions: Thank you for choosing [facility] for your healthcare needs today. It is very important that you follow up as instructed or that you return to the Emergency Department should you have concerns or if your condition changes or worsens in any way. You are seen in the emergency room with complaints of neck pain and left ear. You did respond well to the medication given. There is a slight temp when you first came in which resolved. Your symptoms resolved with the medications given. Your pain on exam is isolated to the sternocleidomastoid muscle. We did do other testing including white count and a sed rate sed rate was mildly elevated the white count was also mildly elevated. The remainder of your exam of your ears and throat were normal. Suspect based on the history you gave and exam findings that this is mostly musculoskeletal. Will discharge you home with a steroid taper anti-inflammatories and muscle relaxers. If your symptoms worsen or change you begin to run a high fever return to the emergency room Print Language: Filipino Coding Level of Care Code ED Precast Worker for Latonia Moore
[2024-10-04 06:37] VITALS: BP 157/115; PULSE 115; RESP 20; TEMP 37.6; O2SAT 100; BMI 34.0
[2024-10-04 06:41] VITALS: BP 157/115; PULSE 115; RESP 20; O2SAT 100
[2024-10-04] MEDS: ketorolac 30 mg/mL INJ 60 MG IM (06:53)
[2024-10-04] MEDS: dexamethasone 10 mg/mL INJ IM (06:53)
[2024-10-04 07:17] LABS: Basophils % 0.3 %; Eosinophils # 0.1 10^3/uL (0.0-0.8); Eosinophils % 0.7 %; Hematocrit 39.4 % (36-47); Lymphocytes # 2.9 10^3/uL (0.8-4.8); Lymphocytes % 23.2 %; Mean Corpuscular HGB Conc 31.7 g/dL (30-55); Mean Corpuscular Hemoglobin 25.8 pg (27-33); Mean Corpuscular Volume 81.4 fl (85-98); Mean Platelet Volume 11.3 fL (7.4-10.4); Monocytes # 1.1 10^3/uL (0.2-0.9); Monocytes % 8.4 %; Neutrophils # 8.36 10^3/uL (1.8-7.7); Nucleated Red Blood Cells % 0 %; Platelet Count 312 10^3/cmm (157-399); Red Blood Count 4.84 10^6/uL (3.85-5.65); Red Cell Distribution Width 14.3 % (12.1-15.1); White Blood Count 12.48 10^3/uL (3.29-11.43)
[2024-10-04 07:35] LABS: Alanine Aminotransferase 26 U/L (0-33); Alkaline Phosphatase 135 U/L (35-105); Anion Gap 17.9 (5-19); Aspartate Amino Transferase 18 U/L (0-32); Blood Urea Nitrogen 12 mg/dL (6-20); Calcium 9.5 mg/dL (8.5-10.5); Carbon Dioxide 24 mmol/L (22-29); Chloride 101 mmol/L (98-107); Creatinine Clr Calc Pharmacy 127.1406; Erythrocyte Sedimentation Rate 29 mm/hr (0-15); Globulin 3.7 g/dL (1.3-4.6); Glucose 111 mg/dL (65-115); Osmolality Calculated 288 mOsm/kg (285-295); Potassium 3.9 mmol/L (3.5-5.1); Sodium 139 mmol/L (136-145); Total Bilirubin 0.2 mg/dL (0.15-1.2); Total Protein 7.7 g/dL (6.6-8.7)
[2024-10-04 08:02] VITALS: TEMP 36.8
[2024-10-04 08:31] LABS: Influenza A NEGATIVE (Negative); Influenza B NEGATIVE (Negative); Respiratory Syncytial Virus Ce NEGATIVE (Negative); SARS-CoV-2 PCR NEGATIVE (Negative)
[2024-10-04 08:59] VITALS: BP 139/84; PULSE 103; RESP 20; O2SAT 98
[2024-10-04 09:12] VITALS: BP 139/84; PULSE 87; O2SAT 95
== END 2024-10-04 09:13 | disposition home or self-care (01) ==
PROVIDERS: Emergency Provider Family Medicine; PCP Family Medicine
DX: S16.1XXA Strain of muscle, fascia and tendon at neck level, initial encounter (principal); Z11.52 Encounter for screening for COVID-19; X58.XXXA Exposure to other specified factors, initial encounter
CPT/HCPCS: 36415; 80053; 85025; 85651; 87637; 96372; 99284; J1100; J1885

== ENCOUNTER → 2025-03-23 10:25 | Outpatient (BNVA) | payer MEDICAID, SELFPAY | PROVIDERS: PCP Family Medicine; Visit Provider Nurse Practitioner Women's Health | DX: N91.2 Amenorrhea, unspecified (principal) | CPT/HCPCS: 80053; 82670; 83001; 83002; 83036; 83525; 84144; 84146; 84402; 84403; 84443; 85025 ==

== ENCOUNTER 2025-04-11 17:05 | Emergency (ER) | payer MEDICAID, SELFPAY ==
--- OUTSIDE RECORDS SUMMARY | 2025-04-11 17:10 | XMS_ITS | Patient Health Record ---
Author Organization [facility] Address [address] [place] [address] Support Name Relationship Address Phone Shannon Waggoner Guarantor Unknown [phone] Allergies No Known Allergies Reason For Referral No Information Medications Medication SIG (Take, Route, Frequency, Duration) Notes Start Date End Date Status Peridex 0.12 % Solution 1/2 cap full -sw juliette for 1 minute DO NOT SWALLOW Mouth/Throat 2x daily; Duration: 7 days 02/04/2022 Active oxyCODONE HCl 10 MG Tablet 1 tablet as n eeded Orally every 8 hrs; Duration: 2 days 02/04/2022 Active Social History Sex Assigned At : Social History Observation Description Sex Assigned At Female Plan Of Treatment No Information Insurance Providers Payer Name Payer Address Payer Phone Subscriber Number Group Number Insured Name Patient Relationship to Insured Coverage Start Date Coverage End Date [employer] [address] [address] [place] [phone] [id number] Shannon Waggoner Self - patient is the insured
--- NOTE | 2025-04-11 17:12 | ECG_ITS ---
[employer] Test Date: 2025-04-11 Pat Name: Shannon Waggoner Department: Room: Gender: Female Guard Captain: : 2005 Requested By: Zuly Martinez Order Number: [id number] [place] MD: Troy Velasco M.D. Measurements Intervals [place] Rate: 99 P: 34 UT: 157 QRS: -19 QRSD: 94 T: 58 QT: 321 QTc: 412 Interpretive Statements SINUS RHYTHM INCOMPLETE RIGHT BUNDLE BRANCH BLOCK [90+ ms QRS DURATION, TERMINAL R IN V1/V2, 40+ ms S IN I/aVL/V4/V5/V6] MINIMAL VOLTAGE CRITERIA FOR LVH, CONSIDER NORMAL VARIANT [MEETS CRITERIA IN ONE OF: R(aVL), S(V1), R(V5), R(V5/V6)+S(V1)] POSSIBLE ANTERIOR MYOCARDIAL INFARCTION , PROBABLY OLD [30 ms Q WAVE IN V3/V4, OR R < 0.2 mV IN V4] No previous ECG available for comparison Electronically Signed On 04-13-2025 09:00:40 CDT by Troy Velasco M.D. [email or web address]
[2025-04-11 17:13] VITALS: BP 144/91; PULSE 101; RESP 18; TEMP 36.8; O2SAT 96; BMI 41.6
--- NOTE | 2025-04-11 17:22 | XRR_ITS ---
PROCEDURE INFORMATION: Exam: XR Chest Exam date and time: 04/11/2025 5:23 PM Age: 20 years old Clinical indication: Shortness of breath TECHNIQUE: Imaging protocol: Radiologic exam of the chest. Views: 1 view. COMPARISON: No relevant prior studies available. FINDINGS: Lungs: No pulmonary edema. No consolidation. Pleural spaces: Unremarkable. No pleural effusion. No pneumothorax. Heart/Mediastinum: Unremarkable. No cardiomegaly. Bones/joints: Unremarkable. XR/XR chest 1V portable [id number] IMPRESSION: No acute findings.
--- NOTE | 2025-04-11 18:35 | ED_ITS ---
HPI - SOB/Dyspnea General: Chief Complaint: Shortness of Breath/Dyspnea Stated Complaint: pressure in chest abd pain and headache Time Seen by Provider: 04/11/25 18:33 History of Present Illness: HPI Narrative: Healthy 20-year-old female presents emergency room with upper respiratory symptoms. She says she has had a headache all day and congestion. She felt like her chest was tight and pressure. On exam she does not have any noticeable wheeze. Vital signs are normal. Related Data Previous Rx's ?Medication ?Instructions ?Recorded drospirenone 3 mg-ethinyl 1 tab PO DAILY #84 tabs 03/14 12/04 estradiol 0.02 mg tablet (ALEJANDRO (28)) albuterol sulfate 90 mcg/actuation 2 inh inhalation Q4 H PRN shortness 04/11/25 aerosol inhaler of breath or wheezing #6.7 g kamila benzonatate 200 mg capsule 200 mg PO TID PRN cough #30 caps 04/11/25 cephalexin 500 mg capsule 500 mg PO BID 5 days #10 cap s 04/11/25 prednisone 20 mg tablet 60 mg (3 x 20 mg) PO DAILY 5 days 04/11/25 #15 tabs Allergies Allergy/AdvReac Type Severity Reaction Status Date / Time No Known Allergies Allergy Verified 03/23/25 09:32 Review of Systems Narrative: Constitutional symptoms: Negative except as documented in HPI. Skin symptoms: Negative except as documented in HPI. Eye symptoms: Negative except as documented in HPI. ENMT symptoms: Negative except as documented in HPI. Respiratory symptoms: Negative except as documented in HPI. Cardiovascular symptoms: Negative except as documented in HPI. Gastrointestinal symptoms: Negative except as documented in HPI. Genitourinary symptoms: Negative except as documented in HPI. Musculoskeletal symptoms: Negative except as documented in HPI. Neurologic symptoms: Negative except as documented in HPI. Psychiatric symptoms: Negative except as documented in HPI. Endocrine symptoms: Negative except as documented in HPI. PFS ED PFSH: Medical History (Updated 04/11/25 @ 18:37 by Zuly Soto MD) Elevated blood pressure complicating in third trimester, antepartum Family History Mother Heart disease Grandfather Diabetes Grandfather No problems noted. Grandmother Diabetes Denies family history of Colon cancer Ovarian cancer Prostate cancer Breast cancer Hypertension Uterine cancer Thyroid disease Stroke Social History Smoking and tobacco/nicotine status: never used tobacco/nicotine Physical Exam Narrative: EXAM NARRATIVE: General: Alert, no acute distress. Skin: Warm, dry. Head: Normocephalic, atraumatic. Neck: Supple, trachea midline. Eye: Extraocular movements are intact. Ears, nose, mouth and throat: mucosa moist. Cardiovascular: Regular, Normal peripheral perfusion. Respiratory: Lungs are clear to auscultation, respirations are non-labored, breath sounds are equal, Symmetrical chest wall expansion. Gastrointestinal: Soft, Nontender, Non distended Musculoskeletal: Normal ROM, no deformity. Neurological: Alert and oriented, No focal neurological deficit observed. Psychiatric: Cooperative, appropriate mood & affect. Course Vital Signs: Vital signs: Vital Signs Temperature 98.3 F 04/11/25 17:13 Pulse Rate 83 04/11/25 18:57 Respiratory Rate 18 04/11/25 17:13 Blood Pressure 138/93 04/11/25 18:57 Pulse Oximetry 94 04/11/25 18:57 Oxygen Delivery Me thod Room Air 04/11/25 18:57 MDM - SOB/Dyspnea Medical Decision Making Medical decision making: Differential diagnosis including but not limited to and based on the above HPI, review of systems and physical exam: Patient is having viral type symptoms. Chest x-ray ordered to rule out pneumonia. Orders placed to evaluate differential diagnosis based on the above differential, HPI and physical exam Chest x-ray: No acute process. No infiltrate. No pneumothorax. This was reviewed and interpreted by myself the emergency room physician. I also reviewed the radiology report. Assessment and plan: Upper respiratory infection ?Decadron and breathing treatment in the emergency room - Discharged home - Discussed plan with patient. Answered any questions. - Evaluation and treatment of this problem were appropriate in the emergency setting. Lab Data Labs/Radiology: Radiology Impressions Chest X-Ray 04/11/25 17:22 IMPRESSION: No acute findings. All radiology interpretation(s) finalized by discharge Discharge Plan Discharge Patient Disposition: Home Clinical Impression: Upper respiratory infection Condition: Stable Prescriptions: New benzonatate 200 mg capsule 200 mg PO TID PRN (Reason: cough) Qty: 30 0RF prednisone 20 mg tablet 60 mg PO DAILY 5 Days Qty: 15 0RF cephalexin 500 mg capsule 500 mg PO BID 5 Days Qty: 10 0RF albuterol sulfate 90 mcg/actuation HFA aerosol inhaler 2 inh inhalation Q4H PRN (Reason: shortness of breath or wheezing) Qty: 6.7 0RF Rx Instructions: Please provide patient with a spacer No Action drospirenone-ethinyl estradiol [ALEJANDRO (28)] 3-0.02 mg tablet 1 tab PO DAILY Qty: 84 1RF Rx Instructions: TAKE ONE TAB DAILY Discharge Orders: Discharge ED (Routine); Ordered 04/11/25 Ordered By: Zuly Soto Discharge Diet: Usual diet Discharge Activity: Increase activity as tolerated Patient Instructions: Upper Respiratory Infection (ED), Opioid Safety, Pain Management, Patient Portal & Lois Instructions Activity Restrictions/Additional Instructions: Thank you for choosing [facility] for your healthcare needs today. You have been screened and evaluated and felt safe for discharge. Health conditions do change or evolve sometimes and as such it is important that you follow up with your Primary Doctor to be re checked, 3-5 days is a general good time frame for follow up. You are always welcome to return to the ED for re assessment if your symptoms are worsening or you have new concerns Print Language: Qatari Coding Level of Care Code ED Director Of Housing for Latonia Moore
[2025-04-11 18:57] VITALS: BP 138/93; PULSE 83; O2SAT 94
[2025-04-11 19:20] VITALS: PULSE 77; RESP 17; O2SAT 94
[2025-04-11 19:27] VITALS: PULSE 85
[2025-04-11 19:41] VITALS: BP 148/99; PULSE 110; O2SAT 93
== END 2025-04-11 19:42 | disposition home or self-care (01) ==
PROVIDERS: Emergency Provider Emergency Medicine
DX: J06.9 Acute upper respiratory infection, unspecified (principal)
CPT/HCPCS: 71045; 93005; 94640; 96372; 99284; J1100; J7613

== ENCOUNTER → 2025-06-15 18:09 | Outpatient (BNVA) | payer SELFPAY | PROVIDERS: Visit Provider Emergency Medicine | DX: R39.9 Unspecified symptoms and signs involving the genitourinary system (principal) | CPT/HCPCS: 81000; 87086 ==